=== PATIENT | female | born 1995 | race Hispanic/Latino ===

== ENCOUNTER 2016-06-20 13:20 | Emergency (ER) | payer OTHER ==
[2016-06-20 13:29] VITALS: BP 116/76
[2016-06-20 13:51] LABS: Basophils % (Auto) 0.6 % (0.0-1.8); Eosinophils % (Auto) 2.3 % (0.0-4.3); Hematocrit 41.5 % (30.3-42.9); Hemoglobin 13.8 gm/dl (10.1-14.3); Mean Corpuscular HGB Conc 33 % (30-34); Mean Corpuscular Hemoglobin 29 pg (28-32); Mean Corpuscular Volume 86 fl (79-97); Platelet Count 225 K/mm3 (140-440); Red Blood Count 4.81 M/mm3 (3.65-5.03); Red Cell Distribution Width 12.8 % (13.2-15.2); White Blood Count 9.3 K/mm3 (4.5-11.0)
[2016-06-20 14:13] LABS: Anion Gap 19 mmol/L; Blood Urea Nitrogen 8 mg/dL (7-17); Calcium 9.5 mg/dL (8.4-10.2); Carbon Dioxide 25 mmol/L (22-30); Chloride 101.8 mmol/L (98-107); Glucose 85 mg/dL (65-100); Potassium 4.6 mmol/L (3.6-5.0); Sodium 141 mmol/L (137-145)
--- NOTE | 2016-06-21 07:55 | ED Elopement Review ---
ED Pt Elopement review - Results review Lab results: Laboratory Tests 06/20/16 06/20/16 06/20/16 13:36 13:36 13:36 WBC 9.3 RBC 4.81 Hgb 13.8 Hct 41.5 MCV 86 MCH 29 MCHC 33 RDW 12.8 L Plt Count 225 Lymph % (Auto) 23.9 Coleman % (Auto) 8.2 H Eos % (Auto) 2.3 Baso % (Auto) 0.6 Lymph # 2.2 Coleman # 0.8 Eos # 0.2 Baso # 0.1 Seg Neutrophils % 65.0 Seg Neutrophils # 6.1 Sodium 141 Potassium 4.6 Chloride 101.8 Carbon Dioxide 25 Anion Gap 19 BUN 8 Creatinine 0.8 Estimated GFR > 60 BUN/Creatinine Ratio 10.00 Glucose 85 Calcium 9.5 Troponin T < 0.010 HCG, Qual Negative 06/20/16 16:33 WBC RBC Hgb Hct MCV MCH MCHC RDW Plt Count Lymph % (Auto) Coleman % (Auto) Eos % (Auto) Baso % (Auto) Lymph # Coleman # Eos # Baso # Seg Neutrophils % Seg Neutrophils # Sodium Potassium Chloride Carbon Dioxide Anion Gap BUN Creatinine Estimated GFR BUN/Creatinine Ratio Glucose Calcium Troponin T < 0.010 HCG, Qual - Call Back decision Pt Call Back Decision: No action required
== END 2016-06-21 03:15 | disposition left against medical advice (07) ==
LOC: ED 13:20
DX: R07.9 Chest pain, unspecified (principal); Z53.21 Procedure and treatment not carried out due to patient leaving prior to being seen by health care provider
CPT/HCPCS: 36415; 80048; 84484; 84703; 85025; 93005; 93010